=== PATIENT | female | born 1960 | race Caucasian/White ===

== ENCOUNTER 2016-06-01 08:13 | Day surgery (SDC) | payer MEDICAID ==
[2016-05-26 12:48] VITALS: BMI 24.7
[~2016-06-01 08:13] MED LIST: LACTATED RINGERS 1,000 ML IV SCH
[2016-06-01 08:58] VITALS: RESP 16; TEMP 97.3
[2016-06-01] MEDS ORDERED: PROPOFOL 10 MG/ML 20 ML VIAL IV ONE (09:22)
--- NOTE | 2016-06-01 09:31 | P.PCN ---
Date of Procedure: 06/01/16 Procedure(s) Performed: BRIEF HISTORY: Patient is a 55-year-old, pleasant, white female, scheduled for an upper endoscopy as a part of evaluation of chronic dyspepsia and occasional dysphagia for the last few months duration. She was started on Prilosec 20 mg daily about 3 months ago and her symptoms are gradually improving. She denies any heartburn. Reports no odynophagia PROCEDURE PERFORMED: Esophagogastroduodenoscopy with biopsy. PREOPERATIVE DIAGNOSIS: Chronic dyspepsia and intermittent dysphagia. IV sedation per anesthesia. PROCEDURE: After informed consent was obtained, the patient was brought into the endoscopy unit. IV conscious sedation was administered by Anesthesia under continuous monitoring. Initially the Olympus GIF-140 video endoscope was inserted into the mouth. Esophagus intubated without any difficulty. It was gradually advanced into the stomach and duodenum and carefully examined. The bulb and the second part of the duodenum appeared normal. The scope at this time was withdrawn to the stomach, adequately insufflated with air, and upon careful examination, mucosa of the antrum, had mild gastritis and biopsies were done from this area. The body, cardia and the fundus appeared normal. The scope was then withdrawn into the esophagus. The GE junction was located at 39 cm from the incisors. The esophagus appeared normal. There were no erosions or ulcerations seen and the patient tolerated the procedure well. IMPRESSION: 1. Minimal antral gastritis. 2. Normal-appearing esophagus with no evidence of esophagitis, esophageal stricture or Gresham's esophagus. RECOMMENDATIONS: The findings of this examination were discussed with the patient as well as a family. Her symptoms are suggestive of gastroesophageal reflux and hence advised to continue with an episode 20 mg daily and follow antireflux measures. She was also advised to follow with the biopsy results.
[2016-06-01 09:35] VITALS: PULSE 61
[2016-06-01 09:49] VITALS: BP 117/77
== END 2016-06-01 10:13 | disposition home or self-care (01) ==
LOC: ORWHC2ENDO 08:13
PROVIDERS: ATTEND Internal Medicine Gastroenterology
DX: K29.50 Unspecified chronic gastritis without bleeding (principal); J45.909 Unspecified asthma, uncomplicated; G47.33 Obstructive sleep apnea (adult) (pediatric); Z79.899 Other long term (current) drug therapy; Z79.51 Long term (current) use of inhaled steroids
CPT/HCPCS: 88305; 88342; 43239; J2704

== ENCOUNTER → 2016-10-24 | Outpatient (CLI) | payer MEDICAID ==
--- NOTE | 2016-10-25 11:23 | MM ---
Reason for exam: screening (asymptomatic). Last mammogram was performed 1 year and 3 months ago. History: Patient is postmenopausal and history of other cancer. Physical Findings: A clinical breast exam by your physician is recommended on an annual basis and results should be correlated with mammographic findings. MG 3D Screening Mammo W/Cad Bilateral CC and MLO view(s) were taken. Prior study comparison: July 01, 2015, bilateral MG screening mammo w CAD. The breast tissue is heterogeneously dense. This may lower the sensitivity of mammography. No significant changes when compared with prior studies. ASSESSMENT: Benign, BI-RAD 2 RECOMMENDATION: Routine screening mammogram of both breasts in 1 year.
== END | disposition home or self-care (01) ==
LOC: RADMAMWWP 10:55
PROVIDERS: ATTEND Family Medicine
DX: Z12.31 Encounter for screening mammogram for malignant neoplasm of breast (principal)
CPT/HCPCS: 77063; G0202

== ENCOUNTER → 2016-12-01 | Outpatient (CLI) | payer MEDICAID ==
--- NOTE | 2016-12-02 07:02 | PN ---
DATE OF SERVICE: 12/01/16 56 -year-old lady has been followed in the sleep center for treatment of severe obstructive sleep apnea/hypopnea syndrome. I reviewed her workup. She has severe obstructive sleep apnea/hypopnea syndrome with apnea/hypopnea index 41.5. The patient continued to use her machine every night. No snoring with the machine. [place]inn sleep scale is 3. The patient thinks that she would prefer slightly high pressure in her CPAP unit. She increased her weight 5 pounds since last year. I checked the patients CPAP unit. CPAP pressure 6 cm water. Ramp is off. Usage is 24 out of 30 nights for more than 4 hours which is very good compliance. Leak is 11 L per minute which is normal range. Apnea/hypopnea index is 2.8. Medications are: 1. ( ). 2. Loratadine. 3. Flonase. PHYSICAL EXAM: GENERAL: A pleasant patient without any distress. VITAL SIGNS: BP 112/64, HR 65, RR 16, height 5 feet 4 inches, weight 144, body mass index 24.7. Temp 98.1, oxygen saturation on room air 97%. HEENT: PERRLA, EOMI. Evaluation of oropharynx shows moderately low position of soft palate. Tongue protrudes midline. Slightly overbite 3 mm. NECK: Supple. No JVD. Thyroid is not palpable. LUNGS: Clear to auscultation and percussion. Good air exchange. No wheezing or rhonchi. HEART: S1, S2 regular. No murmurs, gallops or rubs. ABDOMEN: Soft, nontender. Bowel sounds are preset. No organomegaly appreciated. EXTREMITIES: No clubbing or cyanosis. SUPERVISOR INSPECTION AND TESTING: Awake, alert and oriented times three. Cranial nerves 2 to 7 intact. There is no fasciculation or atrophy noted. No focal deficits observed. IMPRESSION: 1. Severe obstructive sleep apnea/hypopnea syndrome, on control with CPAP. The patient demonstrated great compliance with treatment benefitting from treatment. 2. History of asthma. 3. Allergies. 4. Status post surgical treatment of basal cell carcinoma of the skin. PLAN: 1. I adjusted the CPAP unit up to 7 cm water. 2. The patient will continue to use CPAP equipment every night for the whole night. 3. Watching weight. 4. No driving if patient feels any sleepiness. Thank you very much for allowing me to participate in the management of your patient. Sincerely, Woodrow Ray MD, PhD, FAASM Diplomat of [place] [employer]. Sleep Medicine Board by [place] [employer] [place] [employer] [facility]
== END | disposition home or self-care (01) ==
LOC: SLEEP 15:09
PROVIDERS: ATTEND Internal Medicine
DX: G47.33 Obstructive sleep apnea (adult) (pediatric) (principal); T78.40XA Allergy, unspecified, initial encounter; Z85.828 Personal history of other malignant neoplasm of skin

== ENCOUNTER → 2016-12-22 | Outpatient (CLI) | payer MEDICAID ==
[2016-12-22 08:43] LABS: CH 30.6; CHCM 32.8; HCT 42.8 % (34.0-46.0); HDW 2.37; HGB 13.5 gm/dL (11.4-16.0); MCH 29.5 pg (25.0-35.0); MCHC 31.5 g/dL (31.0-37.0); MCV 93.9 fL (80.0-100.0); Mean Platelet Volume 7.5; RBC 4.56 m/uL (3.80-5.40); RDW 14.4 % (11.5-15.5); WBC 6.2 k/uL (3.8-10.6)
[2016-12-22 09:17] LABS: ALT 61 U/L (9-52); AST 33 U/L (14-36); Alkaline Phosphatase 78 U/L (38-126); Anion Gap 9 mmol/L; Blood Urea Nitrogen 20 mg/dL (7-17); Calcium 9.4 mg/dL (8.4-10.2); Carbon Dioxide 25 mmol/L (22-30); Chloride 108 mmol/L (98-107); Cholesterol 237 mg/dL (<200); Glucose 84 mg/dL (74-99); HDL Cholesterol 78 mg/dL (40-60); Non-African American GFR(MDRD) >60 (>60 ml/min/1.73 sqM); Potassium 4.2 mmol/L (3.5-5.1); Sodium 142 mmol/L (137-145); Total Bilirubin 0.7 mg/dL (0.2-1.3); Total Protein 6.7 g/dL (6.3-8.2)
== END | disposition home or self-care (01) ==
LOC: LABWHC1 08:17
PROVIDERS: ATTEND Family Medicine
DX: I26.99 Other pulmonary embolism without acute cor pulmonale (principal)
CPT/HCPCS: 36415; 80053; 80061; 84443; 85027

== ENCOUNTER 2017-09-15 16:40 | Observation (INO) | payer MEDICAID, OTHER ==
--- NOTE | 2017-09-15 17:37 | XR ---
EXAMINATION TYPE: XR chest 2V DATE OF EXAM: 09/15/2017 COMPARISON: NONE HISTORY: Chest pain TECHNIQUE: Frontal and lateral views of the chest are obtained. FINDINGS: Heart and mediastinum are normal. Lungs are clear. Diaphragm is normal. Bony thorax is int act. IMPRESSION: Normal chest
[2017-09-15 17:39] LABS: Basophils % (A) 0 %; Eosinophils # (A) 0.1 k/uL (0-0.7); Eosinophils % (A) 2 %; HCT 42.9 % (34.0-46.0); HGB 14.4 gm/dL (11.4-16.0); Lymphocytes # (A) 1.8 k/uL (1.0-4.8); Lymphocytes % (A) 25 %; MCH 29.2 pg (25.0-35.0); MCHC 33.6 g/dL (31.0-37.0); MCV 86.7 fL (80.0-100.0); Mean Platelet Volume 7.6; Monocytes # (A) 0.5 k/uL (0-1.0); Monocytes % (A) 7 %; Neutrophils # (A) 4.7 k/uL (1.3-7.7); Neutrophils % (A) 65 %; Platelet Count 218 k/uL (150-450); RBC 4.95 m/uL (3.80-5.40); RDW 13.4 % (11.5-15.5); WBC 7.3 k/uL (3.8-10.6)
--- NOTE | 2017-09-15 17:39 | XR ---
EXAMINATION TYPE: XR sternum DATE OF EXAM: 09/15/2017 COMPARISON: NONE HISTORY: Chest pain TECHNIQUE: 2 views. FINDINGS: The sternal segments have normal alignment. There is very subtle cortical irregularity on the anteri or aspect of the mid sternum on the lateral view. This is suspicious for nondisplaced fracture. Manub rium appears intact. The xiphoid process appears intact and there is no retrosternal mass. IMPRESSION: I suspect a nondisplaced hairline fracture of the mid sternum.
[2017-09-15 17:44] LABS: Anion Gap 16 mmol/L; Blood Urea Nitrogen 23 mg/dL (7-17); Calcium 10.4 mg/dL (8.4-10.2); Carbon Dioxide 21 mmol/L (22-30); Chloride 108 mmol/L (98-107); Glucose 110 mg/dL (74-99); Potassium 3.8 mmol/L (3.5-5.1); Sodium 145 mmol/L (137-145)
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
[2017-09-15] MEDS ORDERED: ACETAMINOPHEN TAB 325 MG TAB PO PRN (18:54)
[2017-09-15] MEDS ORDERED: NALOXONE 0.4 MG/ML 1 ML VIAL IV PRN (18:54)
[2017-09-15] MEDS ORDERED: LIDOCAINE 5% PATCH TOPICAL ONE (20:00)
[2017-09-15 20:22] VITALS: RESP 18; BMI 25.7
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
[2017-09-15] MEDS ORDERED: ALBUTEROL INHALER 60 PUFF/8 GM INHALER INHALATION PRN (21:38)
[2017-09-15] MEDS ORDERED: LORATADINE 10 MG TAB PO SCH (21:45)
[2017-09-15] MEDS ORDERED: ALBUTEROL NEBULIZED 2.5 MG/3 ML INHALATION PRN (21:47)
[2017-09-15] MEDS: NAPROXEN 250 MG TAB PO SCH (22:09)
[2017-09-15] MEDS: HYDROcodone/APAP 5-325MG 1 EACH TAB PO PRN (22:13)
[2017-09-16] MEDS: HYDROcodone/APAP 5-325MG 1 EACH TAB PO PRN ×3 (02:19→11:31)
[2017-09-16] MEDS ORDERED: FLUTICASONE FUROATE 100 MCG INHALATION SCH (08:00)
[2017-09-16] MEDS: NAPROXEN 250 MG TAB PO SCH (08:01)
[2017-09-16] MEDS ORDERED: FLUTICASONE 50MCG/SPRAY NASAL 16GM EA NOSTRIL SCH (09:00)
[2017-09-16 09:35] VITALS: BP 129/72; PULSE 60; TEMP 98.1
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
[2017-09-16] MEDS ORDERED: LIDOCAINE 5% PATCH TOPICAL SCH (21:00)
== END 2017-09-16 13:24 | disposition home or self-care (01) ==
LOC: EC 16:40 → 6PED 18:57
PROVIDERS: ADMIT Surgery; ATTEND Surgery
DX: S22.20XA Unspecified fracture of sternum, initial encounter for closed fracture (principal); V43.52XA Car driver injured in collision with other type car in traffic accident, initial encounter; Y92.410 Unspecified street and highway as the place of occurrence of the external cause; J45.909 Unspecified asthma, uncomplicated; K21.9 Gastro-esophageal reflux disease without esophagitis; G47.30 Sleep apnea, unspecified; Z99.89 Dependence on other enabling machines and devices; Z80.0 Family history of malignant neoplasm of digestive organs; Z80.8 Family history of malignant neoplasm of other organs or systems; Z82.49 Family history of ischemic heart disease and other diseases of the circulatory system; Z79.51 Long term (current) use of inhaled steroids; T78.49XA Other allergy, initial encounter; Z88.6 Allergy status to analgesic agent; Z88.0 Allergy status to penicillin; Z91.048 Other nonmedicinal substance allergy status
CPT/HCPCS: 99285 ×2; 36415; 93005; 80048; 84484; 85025; 71120; 71046; G0378 ×2

== ENCOUNTER → 2018-01-04 | Outpatient (CLI) | payer MEDICAID ==
--- NOTE | 2018-01-04 11:52 | SFUN ---
SLEEP CENTER FOLLOW UP NOTE DATE OF SERVICE: 01/04/2018 A 57-year-old lady who has been followed in the Sleep Center for treatment of obstructive sleep apnea-hypopnea syndrome. Patient continued to use her equipment every night for the last year. She uses 351/365 nights and 304 nights more than 4 hours. Average usage 5.3 hours. Pressure 7 cm of water, leak for the whole year up to 18 L/minute. Apnea-hypopnea index reading for the last year 4.3. For the last month is in the range of 11. Patient referred that recently she developed more problem related to the mask. She had difficulties to breathe through her nose because of allergy issues and she switched to full-face mask and with a full-face mask she did not feel comfortable, had more leaks. [place] Sleepiness Scale today is 3. MEDICATIONS: Loratadine, Flonase, albuterol, ProAir. PHYSICAL EXAM: Patient in no distress. BP 96/63, HR 66, RR 16, height 5, 4, weight 141, BMI 24.2, temperature 97.1, oxygen saturation at room air 100%. OROPHARYNX: Low position of soft palate. Neck Supple, no JVD. Thyroid is not palpable. LUNGS Clear to percussion and to auscultation. Good air exchange. No wheezing or rhonchi. HEART S1, S2 regular. No murmurs, gallops, or rubs. ABDOMEN Soft and nontender. Bowel sounds are present. No organomegaly appreciated. EXTREMITIES No clubbing or cyanosis. [employer] Awake, alert, and oriented X3. Cranial nerves 2 to 7 intact. There is no fasciculation or atrophy. noted. No focal deficits observed. IMPRESSION: 1. Severe obstructive sleep apnea-hypopnea syndrome, patient demonstrated great compliance with treatment, benefitting from treatment, some problems related to the mask fitting. 2. History of asthma. 3. Allergy. 4. Status post surgical treatment for basal cell carcinoma of the skin of the face. PLAN: 1. Patient will continue to use CPAP equipment every night for the whole night. 2. She will try to use nasal strips to improve her breathing through the nose. 3. We will try a different style of full-face mask Airfit F20 small size. Also, patient will try to use nasal pillow mask with a chin strap. 4. Sleep hygiene with regular time in bed for at least 8 hours. 5. No driving if feeling any sleepiness. 6. Followup visit in 3-4 months. Thank you very much for allowing me to participate in the management of your patient. Sincerely, Woodrow Ray MD, PhD, FAASM Diplomat of [place] [employer] [place] [employer] [facility] [place] MMODL / JEFRYN: [id number] /
== END | disposition home or self-care (01) ==
LOC: SLEEP 10:35
PROVIDERS: ATTEND Internal Medicine
DX: G47.33 Obstructive sleep apnea (adult) (pediatric) (principal); J45.909 Unspecified asthma, uncomplicated; T78.40XA Allergy, unspecified, initial encounter; Z79.899 Other long term (current) drug therapy; Z98.890 Other specified postprocedural states

== ENCOUNTER → 2018-04-05 | Outpatient (CLI) | payer MEDICAID ==
--- NOTE | 2018-04-05 12:25 | SFUN ---
SLEEP CENTER FOLLOW UP NOTE DATE OF SERVICE: 04/05/2018 This 57-year-old lady had been followed in the sleep center for treatment of obstructive sleep apnea-hypopnea syndrome. The patient continued to use her CPAP equipment every night. She did have some problems related to her masks. She was not able to use nasal mask because she had problem to breathe through the nose and with a full-face mask she did have discomfort related to the pressure on her nasal bridge. Subsequently, she was switched to [employer] full face mask and patient likes this mask. I checked her CPAP unit. Usage is 86/90 nights for more than 4 hours. Average usage is 6.4 hours. Pressure is 7 cm of water. Leak is 10 L/minute, which is acceptable. Apnea- hypopnea index for the last 3 months 11.6 and that includes total apnea index 8.3, and central apnea index 2.2. [place] Sleepiness Scale today is only 2, which is absolutely normal. MEDICATIONS: Loratadine, Flonase albuterol, ProAir. PHYSICAL EXAMINATION: During physical exam, patient in no distress. VITAL SIGNS: BP 113/64, HR 74, RR 16, height 5 feet 3-1/2 inches, weight 140, which is 1 pound less than during the previous visit. Body mass index 24.4. Temperature 98.2. Oxygen saturation on room air 98%. HEENT: PERRLA, EOMI. Oropharynx low position of soft palate. NECK: Supple, no JVD. Thyroid is not palpable. LUNGS: Clear to percussion and to auscultation. Good air exchange. No wheezing or rhonchi. HEART: S1, S2 regular. No murmurs, gallops, or rubs. ABDOMEN: Soft and nontender. Bowel sounds are present. No organomegaly appreciated. EXTREMITIES: No clubbing or cyanosis. SUPERVISOR ENDLESS TRACK VEHICLE: Awake, alert, and oriented X3. Cranial nerves 2 to 7 intact. There is no fasciculation or atrophy. noted. No focal deficits observed. IMPRESSION: 1. Severe obstructive sleep apnea-hypopnea syndrome. Patient demonstrated great compliance with treatment benefitting from treatment. 2. Slight increasing apnea-hypopnea index by results of reading from the machine. 3. History of asthma. 4. Allergy. 5. Status post surgical treatment for basal cell carcinoma of the skin on face. PLAN: 1. I will change her regimen in the patient CPAP unit to automatic to the range of pressure from 5 to 10 cm of water. 2. Patient will continue to use equipment every night for the whole night with the same type of mask. 3. Sleep hygiene with regular time in bed for at least 8 hours. 4. No driving if feeling sleepiness. Thank you very much for allowing me to participate in management of your patient. Sincerely, Woodrow Ray MD, PhD, FAASM Diplomat of [place] [employer] [place] [employer] Construction Area Manager of [facility] [place] MMODL / JEFRYN: [id number] /
== END ==
LOC: SLEEP 10:18
PROVIDERS: ATTEND Internal Medicine
DX: G47.33 Obstructive sleep apnea (adult) (pediatric) (principal); J45.909 Unspecified asthma, uncomplicated; T78.40XA Allergy, unspecified, initial encounter; Z79.899 Other long term (current) drug therapy; Z98.890 Other specified postprocedural states; Z99.89 Dependence on other enabling machines and devices

== ENCOUNTER → 2018-08-16 | Outpatient (CLI) | payer MEDICAID ==
--- NOTE | 2018-08-16 18:58 | PN ---
PROGRESS NOTE DATE OF SERVICE: 08/16/2018 58-year-old lady has been followed in Sleep Center for treatment of obstructive sleep apnea-hypopnea syndrome. During the last visit in March of 2018 because of increased apnea-hypopnea index to 11.6, I changed regimen in the machine from 5-10 cm of water automatic regimen. Patient is able to use machine every night. Does not complain of any problems related to the pressure. I checked CPAP unit. Pressure is 5-10 cm of water. Most of the time pressure in the machine is 10 cm of water. Leak is 11 L/minute for the last week. Apnea-hypopnea index for the last week 6.7, which is significantly better than during the previous visit. The patient used it for the last 2 weeks, 7/7 days more than 4 hours every 6.8 hours. For the last 2 months, usage is 30/30 nights, 28/30 nights more than 4 hours. Average usage is 6.2 hours. Leak is 16 L/minute and apnea-hypopnea index 7.6 with total apnea index 5.4, and central apnea index 1.8. [place] Sleepiness Scale today is 4. MEDICATION: Loratadine, Flonase, albuterol, Pro air. PHYSICAL EXAM: Patient in no distress. BP 116/75, HR 72, RR 16, height 5 feet and 3-1/2 inches. Weight 138 pounds which is 2 pounds less than during previous visit, BMI 24, temperature 98.0, oxygen saturation at room air 97%. Oropharynx low position of soft palate. Neck Supple, no JVD. Thyroid is not palpable. LUNGS Clear to percussion and to auscultation. Good air exchange. No wheezing or rhonchi. HEART S1, S2 regular. No murmurs, gallops, or rubs. ABDOMEN Soft and nontender. Bowel sounds are present. No organomegaly appreciated. EXTREMITIES No clubbing or cyanosis. HYDRO PNEUMATIC TESTER Awake, alert, and oriented X3. Cranial nerves 2 to 7 intact. There is no fasciculation or atrophy. noted. No focal deficits observed. IMPRESSION: 1. Severe obstructive sleep apnea-hypopnea syndrome. Patient demonstrated great compliance with treatment and benefitting from treatment. Apnea-hypopnea index reading improved after pressure was increased, but still slightly above range I would like to see. 2. History of asthma. 3. Allergy. 4. Status post surgical treatment for basal cell carcinoma skin of the face. PLAN: 1. I will increase range with maximal pressure in the machine to 12. 2. Patient will continue to use CPAP equipment every night for the whole night. 3. Precautions related to driving. 4. Sleep hygiene with regular time in bed for at least 8 hours. Thank you very much for allowing me to participate in management of your patient. Sincerely, Woodrow Ray MD, PhD, FAASM Diplomat of [place] [employer] of Internal Medicine Incident Manager of [facility] [place] MMODL / IJN: [id number] /
== END ==
LOC: SLEEP 15:23
PROVIDERS: ATTEND Internal Medicine
DX: G47.33 Obstructive sleep apnea (adult) (pediatric) (principal); T78.40XA Allergy, unspecified, initial encounter; J45.909 Unspecified asthma, uncomplicated; Z87.09 Personal history of other diseases of the respiratory system; Z85.828 Personal history of other malignant neoplasm of skin; Z79.51 Long term (current) use of inhaled steroids; Z79.899 Other long term (current) drug therapy; Z99.89 Dependence on other enabling machines and devices

== ENCOUNTER → 2018-11-29 | Outpatient (CLI) | payer MEDICAID ==
--- NOTE | 2018-11-29 20:07 | PN ---
PROGRESS NOTE DATE OF SERVICE: 11/29/2018. 58-year-old lady who has been followed in Sleep Center for treatment of obstructive sleep apnea-hypopnea syndrome. The patient continued to use her CPAP equipment every night for the whole night without any significant problem except she is not very comfortable with her full-face mask which covers nose and mouth. I checked her CPAP unit. It is in the range of the pressure of 5-12, average pressure 11.9, usage is 30 out of 30 nights and 26 out of 30 nights, more than 4 hours with average usage 5.4 hours. Apnea-hypopnea index is 5.4, leak is 30 L/minute which is borderline for the full-face mask. [place] Sleepiness Scale today is 3, which is normal. MEDICATIONS: Flonase, loratadine, albuterol, ProAir. PHYSICAL EXAM: Patient in no distress. BP 113/65, HR 64, RR 16, height 5 feet 3-1/2 inches, weight 138 pounds which is the same as one year ago. Body mass index 24, temperature 97.5, oxygen saturation at room air 97%. HEENT: Oropharynx: Low position of soft palate, Mallampati 3-4. Neck Supple, no JVD. Thyroid is not palpable. LUNGS Clear to percussion and to auscultation. Good air exchange. No wheezing or rhonchi. HEART S1, S2 regular. No murmurs, gallops, or rubs. ABDOMEN Soft and nontender. Bowel sounds are present. No organomegaly appreciated. EXTREMITIES No clubbing or cyanosis. RADIATION THERAPY TECHNOLOGIST Awake, alert, and oriented X3. Cranial nerves 2 to 7 intact. There is no fasciculation or atrophy. noted. No focal deficits observed. IMPRESSION: 1. Obstructive sleep apnea-hypopnea syndrome is severe range. Patient demonstrated great compliance with treatment benefitting from treatment. 2. History of asthma. 3. Allergy. 4. Status post surgical treatment for basal cell carcinoma of the skin on face. PLAN: 1. Refitted patient with Ninoska Goins full-face mask which goes under the nose and the patient feels comfortable with this mask. She will try to use this mask with her CPAP unit every night for the whole night. 2. Prescription for all necessary CPAP supplies. 3. Watching weight. 4. Sleep hygiene with regular time in bed for 7.5 to 8 hours. 5. Precautions related to driving. No driving if feeling sleepiness. 6. I will increase range of the pressure up to 13 because the reading from the machine showed practically maximal pressure all the time, so possibly the patient may need slightly high pressure. Thank you very much for allowing me to participate in management of your patient. Sincerely, Woodrow Ray MD, PhD, FAASM Diplomat of [place] [employer] Board of Internal Medicine Timing Adjuster of [facility] [place] MMODL / JEFRYN: [id number] /
== END | disposition home or self-care (01) ==
LOC: SLEEP 15:09
PROVIDERS: ATTEND Internal Medicine
DX: G47.33 Obstructive sleep apnea (adult) (pediatric) (principal); T78.40XA Allergy, unspecified, initial encounter; Z98.890 Other specified postprocedural states; Z87.09 Personal history of other diseases of the respiratory system; Z85.828 Personal history of other malignant neoplasm of skin; Z99.89 Dependence on other enabling machines and devices; Z79.51 Long term (current) use of inhaled steroids; Z79.899 Other long term (current) drug therapy

== ENCOUNTER → 2019-04-16 | Outpatient (CLI) | payer MEDICAID ==
--- NOTE | 2019-04-18 13:41 | MM ---
Reason for exam: screening (asymptomatic). Last mammogram was performed 1 year ago. History: Patient is postmenopausal and history of other cancer. Family history of breast cancer in paternal aunt. Breast lifts of both breasts, April 05, 2017. Physical Findings: A clinical breast exam by your physician is recommended on an annual basis and results should be correlated with mammographic findings. MG 3D Screening Mammo W/Cad Bilateral CC and MLO view(s) were taken. Prior study comparison: April 05, 2018, bilateral MG 3d screening mammo w/cad. October 24, 2016, bilateral MG 3d screening mammo w/cad. The breast tissue is heterogeneously dense. This may lower the sensitivity of mammography. There is no discrete abnormality. No significant changes when compared with prior studies. ASSESSMENT: Negative, BI-RAD 1 RECOMMENDATION: Routine screening mammogram of both breasts in 1 year.
== END | disposition home or self-care (01) ==
LOC: RADMAMWWP 13:10
PROVIDERS: ATTEND Family Medicine
DX: Z12.31 Encounter for screening mammogram for malignant neoplasm of breast (principal)
CPT/HCPCS: 77063; 77067

== ENCOUNTER → 2020-06-18 | Outpatient (CLI) | payer MEDICAID ==
--- NOTE | 2020-06-19 11:38 | MM ---
Reason for exam: screening (asymptomatic). Last mammogram was performed 1 year and 2 months ago. History: Patient is postmenopausal and history of other cancer. Family history of breast cancer in paternal aunt. Breast lifts of both breasts, April 05, 2017. Physical Findings: A clinical breast exam by your physician is recommended on an annual basis and results should be correlated with mammographic findings. MG 3D Screening Mammo W/Cad Bilateral CC and MLO view(s) were taken. Prior study comparison: April 16, 2019, bilateral MG 3d screening mammo w/cad. April 05, 2018, bilateral MG 3d screening mammo w/cad. The breast tissue is heterogeneously dense. This may lower the sensitivity of mammography. There is no discrete abnormality. No significant changes when compared with prior studies. ASSESSMENT: Negative, BI-RAD 1 RECOMMENDATION: Routine screening mammogram of both breasts in 1 year.
== END | disposition home or self-care (01) ==
LOC: RADMAMWWP 10:10
PROVIDERS: ATTEND Obstetrics & Gynecology
DX: Z12.31 Encounter for screening mammogram for malignant neoplasm of breast (principal)
CPT/HCPCS: 77063; 77067

== ENCOUNTER → 2022-02-02 | Outpatient (CLI) | payer MEDICAID ==
--- NOTE | 2022-02-02 11:48 | P.SLEEP ---
History of Present Illness DATE: 02/02/2022 CONSULTATION/NEW PATIENT EVALUATION HISTORY OF PRESENT ILLNESS/SLEEP-WAKE EVALUATION: 61 year old lady had been e valuated in the sleep center for obstructive sleep apnea hypopnea syndrome. Patient has history of obstructive sleep apnea hypopnea syndrome in severe range since 2016. At that time he apnea-hypopnea index 41.5. She was treated with CPAP for this years. Last time I so patient in 11/29/2018. At that time apnea- hypopnea index reading from the machine was 5.4. Patient continued to use her CPAP equipment every night. I checked his CPAP unit. Pressure in the range between 5 and 13, average 13 cm of water. Usage is 90% of nights for more than 4 hours. Leak is 14 L/m which is normal range. Apnea hypopnea index increased to 9.1. SLEEP SCHEDULE: Usually sleep schedule on weekdays from 9 PM to 4 AM, during days off from 9 PM until 5:30 AM. FALLING ASLEEP: No problems with falling asleep. DURING SLEEP: With CPAP patient sleeps well, but still may wake up from sleep up to 2 times. No nocturia. No history of hypnogogical hallucinations, sleep paralysis, or cataplexy. DURING THE DAY/WAKE STATE: Patient may feel sleepy during the day. [place] sleepiness scale is 6. Usually patient doesn't take naps. PAST MEDICAL HISTORY: ALLERGY, asthma. PAST SURGICAL HISTORY: Surgical treatment of basal cell cancer. MEDICATIONS: loratidine. SOCIAL HISTORY: Negative for smoking, alcohol consumption occasional. FAMILY HISTORY: Hypertension, hyperlipidemia, sleep apnea. REVIEW OF SYSTEMS: Occasional awakenings from sleep. No fevers. No double vision. No recent chest pain. No shortness of breath. No abdominal pain. No bleeding episodes. No blood in urine. No seizure episodes. PHYSICAL EXAMINATION: GENERAL: A pleasant patient without any distress. VITAL SIGNS: BP 104/71, HR 63, RR 14, weight 132.6 pounds, height 5 foot 3-3/4 inches, body mass index 22.8. HEENT: PERRLA, EOMI. Evaluation of oropharynx showed tongue protrudes midline, low position of soft palate Mallampati 3-4. NECK: Supple. No JVD. Thyroid is not palpable. 13.5 inches in circumference. LUNGS: Clear to percussion and to auscultation. Good air exchange. No wheezing or rhonchi. HEART: S1, S2 regular. No murmurs, gallops or rubs. ABDOMEN: Soft and nontender. Bowel sounds are present. No organomegaly appr eciated. EXTREMITIES: No clubbing or cyanosis. RECORDS MANAGER: Awake, alert, and oriented x3. Cranial nerves 2 to 7 intact. There is no fasciculation or atrophy noted. No focal deficits observed. ASSESSMENT: 1. Obstructive sleep apnea-hypopnea syndrome in severe range by results of polysomnogram in 2016. At that time apnea-hypopnea index 41.5. Patient demonstrated good compliance with treatment being if eating from treatment. Apnea-hypopnea index slightly increased to 9.1. 2. ALLERGY. 3 history of asthma. 4. Status basal cell CA removed many years ago. PLAN: 1. I increased range of the pressure in CPAP unit to the maximal level of 16 instead of 13 cm of water. 2. Follow up visit in 4 months or earlier if patient has any problems. 3. Preferable position during sleep on the side. 4. No driving if patient feels any sleepiness. Patient is aware of civil and criminal liability for unsafe driving. 5. Sleep hygiene with regular sleep time for at least 7.5-8 hours. 6. Watching weight. Thank you very much for referring this patient for consultation. Sincerely, Woodrow Ray MD, PhD, FAASM. Diplomat of [place] [employer], Sleep Medicine Board by [place] [employer] [place] [employer] Synchronous Motor Assembler of [facility] [place] Past Medical History Past Medical History: Asthma, GERD/Reflux, Sleep Apnea/CPAP/BIPAP Additional Past Medical History / Comment(s): ENVIRONMENTAL ALLERGIES, USES C- PAP MACHINE, History of Any Multi-Drug Resistant Organisms: MRSA Date of last positivie culture/infection: 01/05/21 MDRO Source:: MRSA ARM Past Surgical History: Tonsillectomy Additional Past Surgical History / Comment(s): breast augmentation Past Anesthesia/Blood Transfusion Reactions: No Reported Reaction Additional Past Anesthesia/Blood Transfusion Reaction / Comment(s): ONLY SURGERY A CHILD. Past Psychological History: No Psychological Hx Reported Past Alcohol Use History: None Reported Past Drug Use History: None Reported - Past Family History Father Family Medical History: Cancer Additional Family Medical History / Comment(s): EYE AND LIVER CANCER Mother Family Medical History: Hypertension Medications and Allergies Home Medications Medication Instructions Recorded Confirmed Type Albuterol Sulfate [Proair Hfa] 2 puff INHALATION RT-Q6H PRN 06/10/15 09/15/17 History Loratadine [Claritin] 10 mg PO HS 06/10/15 09/15/17 History Fluticasone Nasal [place] [Flonase 1 spray EA NOSTRIL DAILY 05/26/16 09/15/17 Hi story Nasal [place]] Fluticasone Furoate [Arnuity 100 mcg INHALATION RT-DAILY 09/15/17 09/15/17 History Ellipta] HYDROcodone/APAP 5-325MG [[place] 1 - 2 tab PO Q4H PRN #30 tab 09/16/17 Rx 5-325] Naproxen [Naprosyn] 500 mg PO Q12HR #60 tab 09/16/17 Rx Allergies Allergy/AdvReac Type Severity Reaction Status Date / Time aspirin Allergy Unknown Verified 09/15/17 20:23 Childhood iodine Allergy internal Verified 09/15/17 20:23 itching, blisters Penicillins Allergy Unknown Verified 09/15/17 20:23 Childhood Sleep Note - Sleep Note Sleep Note: Temperature: Pulse Rate: Respiratory Rate: Blood Pressure: SpO2: Height: Weight: BMI: Neck Circumference:
== END ==
LOC: SLEEP 10:51
PROVIDERS: ATTEND Internal Medicine
DX: G47.33 Obstructive sleep apnea (adult) (pediatric) (principal); Z85.828 Personal history of other malignant neoplasm of skin; Z88.6 Allergy status to analgesic agent; Z88.8 Allergy status to other drugs, medicaments and biological substances; Z88.0 Allergy status to penicillin
CPT/HCPCS: 99211

== ENCOUNTER → 2022-06-02 | Outpatient (CLI) | payer MEDICAID ==
--- NOTE | 2022-06-02 11:47 | P.PN ---
Subjective DATE: 06/02/2022 FOLLOW UP VISIT. Patient with obstructive sleep apnea hypopnea syndrome return to sleep center for follow-up visit. Information from previous visit have been reviewed. During previous visit I increased range of the pressure up to 16 cm of water, because apnea-hypopnea index was significantly increased to 9.1. After changing cold the pressure patient sleeps better and feel better. Patient is using PAP equipment every night for the whole night, getting PAP supplies in time. The patient does not have significant problems with the mask, PAP unit and humidification. Alpha sleepiness scale is 4, which is normal. I checked information from PAP unit. PAP unit pressure 5-16, average 15.8 cm H2O. Usage is 100 % for more then 4 hours, average 5.3 hours per night. Leak is 6 l/m, which is in acceptable range. Apnea Hypopnea Index is 5.2, which showed improvements comparing to the previous visit, but still at the border line level. MEDICATIONS:1. Loratidine 2. Singulair During physical exam: GENERAL: A pleasant patient without any distress. VITAL SIGNS: BP 114/74, HR 60, RR 14 , weight 133.0, temperature 96.6, oxygen saturation at room air 98 % . HEENT: PERRLA, EOMI.low position of soft palate, Mallapati 3-4 . NECK: Supple. No JVD. LUNGS: Clear to percussion and to auscultation. Good air exchange. No wheezing or rhonchi. HEART: S1, S2 regular. ABDOMEN: Soft and nontender.[] EXTREMITIES: No clubbing or cyanosis. SKIN SPECIALIST: Awake, alert, and oriented x3. No focal deficit. Impressions: 1. Obstructive sleep apnea-hypopnea syndrome. Patient demonstrated great compliance with treatment, benefiting from treatment. Apnea-hypopnea index reduced to borderline after pressure was increased during previous visit. Patient still has episodes of awakenings in the morning earlier than she would like. 2. ALLERGY. 3. History of asthma. 4. Status post basal cell skin cancer removed many years ago. Plan: 1. Continue using PAP equipment every night for the whole night. I changed level of pressure in CPAP unit to the range 5-17 cm of water. 2. To change air filter at least 1-2 times per month. 3. PAP unit should stay lower then position of the head. 4. Advised patient to remove all remaining water from humidifier canister daily and make it dry after each usage. Refill canister with fresh distilled water before each usage. 5. Sleep hygiene with regular time in bed for at least 8 hours. 6. Precautions related to driving. No driving if feel any sleepiness. 7. I will maintain prescription for PAP supplies including mask, tube, filters. 8. Watching weight. 9. Follow up visit in 6 months or earlier if patient has any problems. Thank you very much for allowing me to participate in the management of your patient. Woodrow Ray MD, PhD, FAASM. Diplomat of [place] Board of Sleep Medicine, Sleep Medicine Board by [place] [employer] Medicine Vmware Architect of [facility] [place]
== END ==
LOC: SLEEP 11:10
PROVIDERS: ATTEND Internal Medicine
DX: G47.33 Obstructive sleep apnea (adult) (pediatric) (principal); Z85.828 Personal history of other malignant neoplasm of skin; J45.909 Unspecified asthma, uncomplicated; Z99.89 Dependence on other enabling machines and devices; Z88.6 Allergy status to analgesic agent; Z88.0 Allergy status to penicillin; Z88.8 Allergy status to other drugs, medicaments and biological substances
CPT/HCPCS: 99212

== ENCOUNTER → 2022-11-17 | Outpatient (CLI) | payer MEDICAID ==
--- NOTE | 2022-11-17 18:12 | P.PN ---
Subjective DATE: 11/17/2022 FOLLOW UP VISIT. Patient with obstructive sleep apnea hypopnea syndrome return to sleep center for follow-up visit. Information from previous visit have been reviewed. Patient is using PAP equipment every night for the whole night, getting PAP supplies in time. The patient does not have significant problems with the mask, PAP unit and humidification. [place] sleepiness scale is 8, which is in normal range. I checked information from PAP unit. PAP unit pressure 5-17, average 16.4 cm H2O. Usage is 100 % for more then 4 hours, average 4.9 hours per night. Leak is 10 l/m, which is in acceptable range. Apnea Hypopnea Index is 5.1, which is borderline. CPAP unit is noisy, needs to be replaced. MEDICATIONS:1. Claritin During physical exam: GENERAL: A pleasant patient without any distress. VITAL SIGNS: BP 128/78, HR 73, RR 12, weight 136.2, temperature 97.5, oxygen saturation at room air 97 % . HEENT: PERRLA, EOMI.low position of soft palate, Mallapati 3-4 . NECK: Supple. No JVD. LUNGS: Clear to percussion and to auscultation. Good air exchange. No wheezing or rhonchi. HEART: S1, S2 regular. ABDOMEN: Soft and nontender.[] EXTREMITIES: No clubbing or cyanosis. FEEDER DRIVER: Awake, alert, and oriented x3. No focal deficit. Impressions: 1. Obstructive sleep apnea-hypopnea syndrome. Patient demonstrated great compliance with treatment, benefiting from treatment. 2. ALLERGY. 3. History of asthma. 4. History of basal cell skin cancer treated surgically years ago. Plan: 1. Continue using PAP equipment every night for the whole night. Prescription to replace CPAP unit. 2. To change air filter at least 1-2 times per month. 3. PAP unit should stay lower then position of the head. 4. Advised patient to remove all remaining water from humidifier canister daily and make it dry after each usage. Refill canister with fresh distilled water before each usage. 5. Sleep hygiene with regular time in bed for at least 8 hours. 6. Precautions related to driving. No driving if feel any sleepiness. 7. I will maintain prescription for PAP supplies including mask, tube, filters. 8. Follow up visit in 2 months after patient will get new CPAP machine. 9. Watching weight. Thank you very much for allowing me to participate in the management of your patient. Woodrow Ray MD, PhD, FAASM. Diplomat of [place] [employer] Sleep Medicine, Sleep Medicine Board by [place] [employer] Medicine Journeyman Molder of [facility] [place]
== END ==
LOC: 3 N SLEEP 15:21
PROVIDERS: ATTEND Internal Medicine
DX: G47.33 Obstructive sleep apnea (adult) (pediatric) (principal); J45.909 Unspecified asthma, uncomplicated; Z98.890 Other specified postprocedural states; Z99.89 Dependence on other enabling machines and devices; Z88.6 Allergy status to analgesic agent; Z91.02 Food additives allergy status; Z88.0 Allergy status to penicillin
CPT/HCPCS: 99212

== ENCOUNTER → 2022-12-22 | Outpatient (CLI) | payer MEDICAID ==
--- NOTE | 2022-12-23 10:28 | MM ---
Reason for Exam: Screening (asymptomatic). Last mammogram was performed 2 year(s) and 6 month(s) ago. Patient History: Menarche at age 17. First Full-Term at age 26. Postmenopausal. Paternal aunt had breast cancer. Risk Values: Jacy 5 year model risk: 1.5%. NCI Lifetime model risk: 7.2%. Prior Study Comparison: 04/05/2018 Bilateral Screening Mammogram, [facility]. 04/16/2019 Bilateral Screening Mammogram, [facility]. 06/18/2020 Bilateral Screening Mammogram, [facility]. Tissue Density: The breast tissue is heterogeneously dense. This may lower the sensitivity of mammography. Findings: Analyzed By CAD. Pattern appears symmetrical and stable. No significant interval change is evident. No suspicious groups of microcalcifications, spiculated or lobular masses, architectural distortion or other secondary signs of malignancy are mammographically apparent. Overall Assessment: Benign, BI-RAD 2 Management: Screening Mammogram of both breasts in 1 year. A negative mammogram report should not preclude additional follow up of suspicious palpable abnormalities. Patient should continue monthly self breast exam. A clinical breast exam by your physician is recommended on an annual basis and results should be correlated with mammographic findings. Electronically signed and approved by: Dio Flores D.O. Radiologis
== END | disposition home or self-care (01) ==
LOC: RADMAMWWP 13:33
PROVIDERS: ATTEND Obstetrics & Gynecology
DX: Z12.31 Encounter for screening mammogram for malignant neoplasm of breast (principal); Z78.0 Asymptomatic menopausal state; Z80.3 Family history of malignant neoplasm of breast
CPT/HCPCS: 77063; 77067

== ENCOUNTER → 2023-09-05 | Outpatient (CLI) | payer MEDICAID ==
--- NOTE | 2023-09-05 12:32 | XR ---
EXAMINATION TYPE: XR wrist complete LT DATE OF EXAM: 09/05/2023 12:28 PM CLINICAL INDICATION:Female, 63 years old with history of R52 pain; COMPARISON: None TECHNIQUE: XR wrist complete LT; examined in the Frontal, navicular, lateral, and oblique. FINDINGS: No acute osseous pathology, joint dislocation, or joint effusion. No evidence of any soft tissue swelling is seen. IMPRESSION: No acute osseous pathology. Consider further evaluation with MRI.
== END | disposition home or self-care (01) ==
LOC: RADXRMAIN 11:53
PROVIDERS: ATTEND Family Medicine
DX: M25.532 Pain in left wrist (principal)

== ENCOUNTER → 2024-01-10 | Outpatient (CLI) | payer MEDICAID ==
--- NOTE | 2024-01-14 11:42 | MM ---
Reason for Exam: Screening (asymptomatic). Last mammogram was performed 1 year(s) and 1 month(s) ago. Patient History: Menarche at age 17. First Full-Term at age 26. Postmenopausal. Paternal aunt had breast cancer, age 80. Risk Values: Jacy 5 year model risk: 1.5%. NCI Lifetime model risk: 7.0%. Prior Study Comparison: 04/16/2019 Bilateral Screening Mammogram, [facility]. 06/18/2020 Bilateral Screening Mammogram, [facility]. 12/22/2022 Bilateral MG 3D screening mammo w/cad, [facility]. Tissue Density: The breasts are heterogeneously dense, which may obscure small masses. Findings: Analyzed By CAD. Right breast: There is no suspicious group of microcalcifications or new suspicious mass. Left breast: There is no suspicious group of microcalcifications or new suspicious mass. Overall Assessment: Negative, BI-RAD 1 Management: Screening Mammogram of both breasts in [address] [facility] will attempt to contact patient to return for supplemental views and ultrasound if indicated. Patient should continue monthly self-breast exams. A clinical breast exam by your physician is recommended on an annual basis. This exam should not preclude additional follow-up of suspicious palpable abnormalities. Note on Jacy scores and lifetime risk: 1. A Jacy score greater than 3% is considered moderate risk. If this is the case, consider specialist referral to assess eligibility for a risk reducing agent. 2. If overall lifetime risk for the development of breast cancer is 20% or higher, the patient may qualify for future screening with alternating mammogram and breast MRI. Electronically signed and approved by: Ezio Crenshaw DO
--- NOTE | 2024-01-15 16:20 | BD ---
EXAMINATION TYPE: Axial Bone Density DATE OF EXAM: 01/10/2024 CLINICAL HISTORY: 63 years old Female. ICD-10 CODE: M85.88 OSTEOPENIA Height: 5 ft 4 in Weight: 133 FRAX RISK QUESTIONS: Alcohol (3 or more units per day): no Family History (Parent hip fracture): no Glucocorticoids (More than 3mos): yes (Ex: prednisone, prednisolone, methylprednisolone, dexamethasone, and hydrocortisone). History of Fracture in Adulthood: yes Secondary Osteoporosis: 1. Type 1 Diabetes: no 2. Hyperthyroidism: no 3. Menopause before 45: no 4. Malnutrition: no 5. Chronic liver disease: no Rheumatoid Arthritis: no Current Tobacco Use: no RISK FACTORS HISTORY OF: Surgery to Spine/Hip(right/left)/Wrist (right/left): no MEDICATIONS: Thyroid Medicationsnone Osteoporosis Medications: none EXAM MEASUREMENTS: Bone mineral densitometry was performed using the [employer] Erwin System. Bone mineral density as measured about the Lumbar spine is: ----- L1-L4(G/cm2): 0.824 T Score Values are as follows: ----- L1: -2.2 ----- L2: -3.1 ----- L3: -3.1 ----- L4: -3.5 ----- L1-L4: -3.0 Z Score Values are as follows: ----- L1: -0.7 ----- L2: -1.5 ----- L3: -1.5 ----- L4: 2.0 ----- L1-L4: -1.4 decreased -9.7 from 2018 study Bone mineral density about the R hip (g/cm2): 0.744 Bone mineral density about the L hip (g/cm2): 0.805 T Score values are as follows: -----R Neck: -1.9 -----L Neck: -1.7 -----R Total: -1.6 -----L Total: -1.6 Z Score values are as follows: -----R Neck: -0.5 -----L Neck: -0.2 -----R Total: -0.4 -----L Total: -0.4 decreased -7.3 from 2018 study FRAX%s: The graph provided illustrates a 15.8 % chance for a major osteoporotic fx and a 2.2 % chance for the hips probability for fx in 10 years time. IMPRESSION: Osteoporosis (T Score less than -2.5). There is increased fracture risk and therapy is usually indicated based on age. Re-Screen 1-2 years. NOTE: T-SCORE=SD OF THE YOUNG ADULT MEAN.
== END | disposition home or self-care (01) ==
LOC: RADMAMWWP 13:53
PROVIDERS: ATTEND Family Medicine
DX: Z12.31 Encounter for screening mammogram for malignant neoplasm of breast (principal); R92.333 Mammographic heterogeneous density, bilateral breasts; M85.88 Other specified disorders of bone density and structure, other site; M81.0 Age-related osteoporosis without current pathological fracture; Z80.3 Family history of malignant neoplasm of breast; Z78.0 Asymptomatic menopausal state
CPT/HCPCS: 77063; 77067; 77080

== ENCOUNTER → 2024-04-18 | Outpatient (CLI) | payer MEDICAID ==
[2024-04-18 11:41] VITALS: BP 113/72; PULSE 60; RESP 16; TEMP 97.7
--- NOTE | 2024-04-18 12:00 | P.PROGSL ---
Subjective DATE: 04/18/2024 FOLLOW UP VISIT. Patient with obstructive sleep apnea hypopnea syndrome return to sleep center for follow-up visit. Information from previous visit have been reviewed. Patient is using PAP equipment every night for the whole night, getting PAP supplies in time. The patient does not have significant problems with the mask, PAP unit and humidification. Clio sleepiness scale is 3, which is normal. I checked information from PAP unit. PAP unit pressure 5-17, average 15.2 cm H2O. Usage is 80% for more then 4 hours, average 5 hours per night. Leak is 2 l/m, which is in acceptable range. Apnea Hypopnea Index is increased to 7.8 for the last night and average 4.1 for the last year. MEDICATIONS have been reviewed, please see below. During physical exam: GENERAL: A pleasant patient without any distress. VITAL SIGNS: Please see below, weight is 131 lbs. HEENT: PERRLA, EOMI.low position of soft palate, Mallapati 34. NECK: Supple. No JVD. LUNGS: Clear to percussion and to auscultation. Good air exchange. No wheezing or rhonchi. HEART: S1, S2 regular. ABDOMEN: Soft and nontender.[] EXTREMITIES: No clubbing or cyanosis. BEARING INSPECTOR: Awake, alert, and oriented x3. No focal deficit. Impressions: 1. Obstructive sleep apnea-hypopnea syndrome. Patient demonstrated great compliance with treatment, benefiting from treatment. 2. Allergy. 3. History of asthma. 4. Presently some restrictions of nasal breathing. 5. History of basal cell carcinoma of the skin, treated surgically in the past. Plan: 1. Continue using PAP equipment every night for the whole night. 2. Sleep hygiene with regular time in bed for at least 7.5-8 hours 3. PAP unit should stay lower then position of the head. 4. Advised patient to remove all remaining water from humidifier canister daily and make it dry after each usage. Refill canister with fresh distilled water before each usage. 5. Watching weight. 6. Precautions related to driving. No driving if feel any sleepiness. 7. I will maintain prescription for PAP supplies including mask, tube, filters. 8. Follow up visit in 3 months or earlier if patient has any problems. Thank you very much for allowing me to participate in the management of your patient. Woodrow Ray MD, PhD, FAASM. Diplomat of [place] [employer], Sleep Medicine Board by [place] [employer] Director Report of [facility] [place] Objective - Vital Signs Vital Signs: Vital Signs Temp 97.7 F 04/18/24 11:39 Pulse 60 04/18/24 11:39 Resp 16 04/18/24 11:39 BP 113/72 04/18/24 11:39 Pulse Ox 100 04/18/24 11:39 FiO2 Intake & Output 04/17/24 04/18/24 04/18/24 18:59 06:59 18:59 Weight 59.421 kg Home Medications: Home Medications Medication Instructions Recorded Confirmed Type Albuterol Sulfate [Proair Hfa] 2 puff INHALATION RT-Q6H PRN 06/10/15 09/15/17 History Loratadine [Claritin] 10 mg PO HS 06/10/15 04/18/24 History Fluticasone Nasal [place] [Flonase 1 spray EA NOSTRIL DAILY 05/26/16 09/15/17 History Nasal [place]] Fluticasone Furoate [Arnuity 100 mcg INHALATION RT-DAILY 09/15/17 09/15/17 History Ellipta] HYDROcodone/APAP 5-325MG [[place] 1 - 2 tab PO Q4H PRN #30 tab 09/16/17 Rx 5-325] Naproxen [Naprosyn] 500 mg PO Q12HR #60 tab 09/16/17 Rx
== END ==
LOC: 3 N SLEEP 11:27
PROVIDERS: ATTEND Internal Medicine
DX: G47.33 Obstructive sleep apnea (adult) (pediatric) (principal); T78.40XA Allergy, unspecified, initial encounter; Z88.0 Allergy status to penicillin; Z88.6 Allergy status to analgesic agent; Z91.041 Radiographic dye allergy status; Z85.828 Personal history of other malignant neoplasm of skin; Z82.5 Family history of asthma and other chronic lower respiratory diseases
CPT/HCPCS: 99212

== ENCOUNTER → 2024-04-25 | Outpatient (CLI) | payer MEDICAID ==
--- NOTE | 2024-04-25 07:52 | XR ---
EXAMINATION TYPE: XR chest 2V DATE OF EXAM: 04/25/2024 7:38 AM COMPARISON: 09/15/2017 CLINICAL INDICATION: Female, 63 years old with history of R05.9 COUGH, TECHNIQUE: Frontal and lateral views of the chest are obtained. FINDINGS: Hyperinflation compatible with COPD. There is no focal air space opacity, pleural effusion , or pneumothorax seen. The cardiac silhouette size is within normal limits. The osseous structure s are intact. IMPRESSION: No acute cardiopulmonary process. [facility], , 04/25/2024 7:50 AM
== END | disposition home or self-care (01) ==
LOC: RADXRMAIN 07:19
PROVIDERS: ATTEND Family Medicine
DX: R05.9 Cough, unspecified (principal)
CPT/HCPCS: 71046

== ENCOUNTER → 2024-04-29 | Outpatient (CLI) | payer MEDICAID ==
[2024-04-29 10:59] LABS: Basophils # (A) 0.04 X 10*3/uL (0.00-0.10); Basophils % (A) 0.8 %; Eosinophils # (A) 0.45 X 10*3/uL (0.04-0.35); Eosinophils % (A) 9.4 %; HCT 41.7 % (37.2-46.3); HGB 13.7 g/dL (12.0-15.0); Lymphocytes # (A) 1.28 X 10*3/uL (0.90-5.00); Lymphocytes % (A) 26.6 %; MCH 29.5 pg (27.0-32.0); MCHC 32.9 g/dL (32.0-37.0); MCV 89.7 FL (80.0-97.0); Mean Platelet Volume 10.9 FL (9.5-12.2); Monocytes # (A) 0.35 X 10*3/uL (0.20-1.00); Monocytes % (A) 7.3 %; NRBC Per 100 WBC 0 X 10*3/uL (0.00-0.01); Neutrophils # (A) 2.68 X 10*3/uL (1.80-7.70); Neutrophils % (A) 55.7 %; Platelet Count 221 X 10*3/uL (140-440); RBC 4.65 X 10*6/uL (4.10-5.20); RDW 13.2 % (11.5-14.5); WBC 4.81 X 10*3/uL (4.50-10.00)
[2024-04-29 11:13] LABS: Erythrocyte Sedimentation Rate 13 mm/Hr (0-30)
[2024-04-29 11:36] LABS: Insulin Level 3.6 mIU/mL (3.0-25.0)
[2024-04-29 11:47] LABS: % Iron Saturation 27.36 (12.00-45.00); ALT 16 U/L (8-44); AST 19 U/L (13-35); Albumin 4.5 g/dL (3.8-4.9); Alkaline Phosphatase 105 U/L (41-126); BUN/Creat Ratio 22.25 Ratio (12.00-20.00); Blood Urea Nitrogen 17.8 mg/dL (9.0-27.0); Calcium 9.6 mg/dL (8.7-10.3); Carbon Dioxide 24.8 mmol/L (21.6-31.8); Chloride 106 mmol/L (96-109); Chol/HDL Ratio 2.76 Ratio; Globulin 2.5 g/dL (1.6-3.3); Glucose 92 mg/dL (70-110); Iron 90 UG/DL (50-170); LDL Cholesterol,Calculated 119.8 mg/dL (0.0-131.0); Magnesium 2.2 mg/dL (1.5-2.4); Phosphorus 3.9 mg/dL (2.4-5.1); Potassium 3.9 mmol/L (3.5-5.5); Sodium 142 mmol/L (135-145); Total Bilirubin 0.7 mg/dL (0.3-1.2); Total Iron Binding Capacity 329 UG/DL (228-460)
[2024-04-29 11:48] LABS: T4, Free (Free Thyroxine) 1.23 ng/dL (0.80-1.80)
[2024-04-29 11:49] LABS: Homocysteine 9.65 UMOL/L (4.00-14.00)
[2024-04-29 13:41] LABS: EBV-EA (IgG) 1.4 AI; EBV-EBNA(IgG) >8.0; EBV-VCA (IgG) >8.0 AI; EBV-VCA (IgM) <0.2 AI
[2024-04-29 19:47] LABS: C-Peptide 1.49 ng/mL (0.81-3.85)
[2024-04-30 09:11] LABS: Lipoprotein A 10 mg/dL (0-30)
[2024-04-30 11:25] LABS: Zinc, Serum 105 ug/dL (60-130)
== END ==
LOC: LABWHC1 06:50
PROVIDERS: ATTEND Physical Medicine & Rehabilitation
DX: Z00.8 Encounter for other general examination (principal); D50.9 Iron deficiency anemia, unspecified; D51.9 Vitamin B12 deficiency anemia, unspecified; E55.9 Vitamin D deficiency, unspecified; E78.5 Hyperlipidemia, unspecified; K86.81 Exocrine pancreatic insufficiency; M81.0 Age-related osteoporosis without current pathological fracture; R94.5 Abnormal results of liver function studies; R79.82 Elevated C-reactive protein (CRP); R94.6 Abnormal results of thyroid function studies
CPT/HCPCS: 36415; 80053; 80061; 82180; 82306; 82523; 82607; 82728; 82746; 83036; 83090; 83516; 83525; 83540; 83550; 83625; 83695; 83735; 83970; 84100; 84432; 84439; 84443; 84481; 84482; 84590; 84630; 84681; 85025; 85652; 86038; 86141; 86376; 86663; 86664; 86665

== ENCOUNTER → 2024-07-15 | Outpatient (CLI) | payer MEDICAID ==
[2024-07-15 10:43] LABS: Basophils # (A) 0.05 X 10*3/uL (0.00-0.10); Eosinophils # (A) 0.36 X 10*3/uL (0.04-0.35); Eosinophils % (A) 7.4 %; HCT 38.4 % (37.2-46.3); HGB 12.4 g/dL (12.0-15.0); Lymphocytes # (A) 1.32 X 10*3/uL (0.90-5.00); MCHC 32.3 g/dL (32.0-37.0); MCV 89.9 FL (80.0-97.0); Mean Platelet Volume 10.7 FL (9.5-12.2); Monocytes # (A) 0.45 X 10*3/uL (0.20-1.00); Monocytes % (A) 9.2 %; NRBC Per 100 WBC 0 X 10*3/uL (0.00-0.01); Neutrophils % (A) 55.2 %; Platelet Count 219 X 10*3/uL (140-440); RBC 4.27 X 10*6/uL (4.10-5.20); RDW 13.4 % (11.5-14.5); WBC 4.89 X 10*3/uL (4.50-10.00)
[2024-07-15 11:14] LABS: Homocysteine 7.19 UMOL/L (4.00-14.00)
[2024-07-15 11:19] LABS: Insulin Level 3.9 mIU/mL (3.0-25.0)
[2024-07-15 12:28] LABS: % Iron Saturation 25.94 (12.00-45.00); ALT 23 U/L (8-44); AST 23 U/L (13-35); Albumin 4.2 g/dL (3.8-4.9); Albumin/Globulin Ratio 1.75 Ratio (1.60-3.17); Alkaline Phosphatase 102 U/L (41-126); BUN/Creat Ratio 22.25 Ratio (12.00-20.00); Blood Urea Nitrogen 17.8 mg/dL (9.0-27.0); Calcium 9.5 mg/dL (8.7-10.3); Carbon Dioxide 24.6 mmol/L (21.6-31.8); Chloride 108 mmol/L (96-109); Chol/HDL Ratio 2.92 Ratio; Globulin 2.4 g/dL (1.6-3.3); Glucose 92 mg/dL (70-110); Iron 76 UG/DL (50-170); LDL Cholesterol,Calculated 122.1 mg/dL (0.0-131.0); Magnesium 2.1 mg/dL (1.5-2.4); Phosphorus 3.9 mg/dL (2.4-5.1); Potassium 4.1 mmol/L (3.5-5.5); Sodium 144 mmol/L (135-145); Total Bilirubin 0.5 mg/dL (0.3-1.2); Total Iron Binding Capacity 293 UG/DL (228-460); Total Protein 6.6 g/dL (6.2-8.2)
[2024-07-15 12:29] LABS: T4, Free (Free Thyroxine) 1.29 ng/dL (0.80-1.80)
[2024-07-15 12:49] LABS: EBV-EA (IgG) 1.8 AI; EBV-EBNA(IgG) >8.0; EBV-VCA (IgG) >8.0 AI; EBV-VCA (IgM) <0.2 AI
[2024-07-15 12:59] LABS: Erythrocyte Sedimentation Rate 19 mm/Hr (0-30)
[2024-07-16 06:15] LABS: EBV - EA (IgG) 54.8 U/mL (<9.0)
[2024-07-16 13:46] LABS: Zinc, Serum 103 ug/dL (60-130)
[2024-07-16 14:49] LABS: Candida albicans IgE Class CLASS 0
== END | disposition home or self-care (01) ==
LOC: LABWHC1 07:03
PROVIDERS: ATTEND Physical Medicine & Rehabilitation
DX: Z00.8 Encounter for other general examination (principal); E55.9 Vitamin D deficiency, unspecified; E78.2 Mixed hyperlipidemia; D50.9 Iron deficiency anemia, unspecified; D51.9 Vitamin B12 deficiency anemia, unspecified; M81.0 Age-related osteoporosis without current pathological fracture; K86.81 Exocrine pancreatic insufficiency; R79.82 Elevated C-reactive protein (CRP); R94.6 Abnormal results of thyroid function studies; R94.5 Abnormal results of liver function studies
CPT/HCPCS: 36415; 80053; 80061; 82180; 82306; 82607; 82728; 83036; 83090; 83525; 83540; 83550; 83735; 84100; 84432; 84439; 84443; 84481; 84482; 84590; 84630; 85025; 85652; 86003; 86038; 86140; 86376; 86663; 86664; 86665

== ENCOUNTER → 2024-08-01 | Outpatient (CLI) | payer MEDICAID ==
[2024-08-01 14:29] VITALS: BP 109/69; PULSE 66; RESP 16; TEMP 97.9
--- NOTE | 2024-08-01 15:47 | P.PROGSL ---
Subjective DATE: 08/01/2024 FOLLOW UP VISIT. Patient with obstructive sleep apnea hypopnea syndrome return to sleep center for follow-up visit. Information from previous visit have been reviewed. Patient is using PAP equipment every night for the whole night, getting PAP supplies in time. The patient does not have significant problems with the mask, PAP unit and humidification. Mcleod sleepiness scale is 3, which is normal. I checked information from PAP unit. PAP unit pressure 5-17, average 16.8 cm H2O. Usage is 100% for more then 4 hours, average 4.9 hours per night. Leak is 10 l/m, which is in acceptable range. Apnea Hypopnea Index is 4.7, which is normal, but patient still sometimes wakes up from sleep. MEDICATIONS have been reviewed, please see below. During physical exam: GENERAL: A pleasant patient without any distress. VITAL SIGNS: Please see below, weight is 129 lbs. HEENT: PERRLA, EOMI.low position of soft palate, Mallapati 34. NECK: Supple. No JVD. LUNGS: Clear to percussion and to auscultation. Good air exchange. No wheezing or rhonchi. HEART: S1, S2 regular. ABDOMEN: Soft and nontender.[] EXTREMITIES: No clubbing or cyanosis. STRIPPER CUTTER MACHINE: Awake, alert, and oriented x3. No focal deficit. Impressions: 1. Obstructive sleep apnea-hypopnea syndrome. Patient demonstrated great compliance with treatment, benefiting from treatment. 2. Allergy. 3. Asthma. 4. Status post basal cell carcinoma removed in the past. I slightly increased range of the pressure to 5-18 cm of water on CPAP unit. Plan: 1. Continue using PAP equipment every night for the whole night. 2. Sleep hygiene with regular time in bed for at least 7.5-8 hours 3. PAP unit should stay lower then position of the head. 4. Advised patient to remove all remaining water from humidifier canister daily and make it dry after each usage. Refill canister with fresh distilled water before each usage. 5. Watching weight. 6. Precautions related to driving. No driving if feel any sleepiness. 7. I will maintain prescription for PAP supplies including mask, tube, filters. 8. Follow up visit in 8 months or earlier if patient has any problems. Thank you very much for allowing me to participate in the management of your patient. Woodrow Ray MD, PhD, FAASM. Diplomat of [place] [employer], Sleep Medicine Board by [place] [employer] Substation Designer of [facility] [place] Objective - Vital Signs Vital Signs: Vital Signs Temp 97.9 F 08/01/24 14:29 Pulse 66 08/01/24 14:29 Resp 16 08/01/24 14:29 BP 109/69 08/01/24 14:29 Pulse Ox 98 08/01/24 14:29 FiO2 Intake & Output 07/31/24 08/01/24 08/01/24 18:59 06:59 18:59 Weight 58.513 kg Home Medications: Home Medications Medication Instructions Recorded Confirmed Type Albuterol Sulfate [Proair Hfa] 2 puff INHALATION RT-Q6H PRN 06/10/15 09/15/17 History Loratadine [Claritin] 10 mg PO HS 06/10/15 08/01/24 History Fluticasone Nasal [place] [Flonase 1 spray EA NOSTRIL DAILY 05/26/16 09/15/17 History Nasal [place]] Fluticasone Furoate [Arnuity 100 mcg INHALATION RT-DAILY 09/15/17 09/15/17 History Ellipta] HYDROcodone/APAP 5-325MG [[place] 1 - 2 tab PO Q4H PRN #30 tab 09/16/17 Rx 5-325] Naproxen [Naprosyn] 500 mg PO Q12HR #60 tab 09/16/17 Rx
== END ==
LOC: 3 N SLEEP 14:21
PROVIDERS: ATTEND Internal Medicine
DX: G47.33 Obstructive sleep apnea (adult) (pediatric) (principal); T78.40XA Allergy, unspecified, initial encounter; J45.909 Unspecified asthma, uncomplicated; Z85.828 Personal history of other malignant neoplasm of skin; Z99.89 Dependence on other enabling machines and devices; Z88.6 Allergy status to analgesic agent; Z88.0 Allergy status to penicillin; Z91.041 Radiographic dye allergy status
CPT/HCPCS: 99212